=== PATIENT | female | born 1970 | race Caucasian/White ===

== ENCOUNTER → 2017-08-23 | Outpatient (CLI) | payer SELFPAY ==
[~2017-08-23] MED LIST: ALBUTEROL0.09 MG/A2 IH; ALBUTEROL0.09 MG/A2 INH; ANAPROX DS550 MG PO; BIAXIN500 MG PO; BREO ELLIPTA 21 EACH IH; CETIRIZINE10 MG; CLARITIN10 MG PO; CLEOCIN HCL150 MG PO; DELTASONE20 MG PO; DUONEB 3 MG/3 ML3 M1 INH; LEVAQUIN750 MG PO; LOMOTIL 0.025 M1 TAB PO; MEDROL DOSEPAK4 MG PO; NKHM; NORCO 5-325 TA1 EACH PO; PREDNISONE10 MG PO; PREDNISONE20 M1 PO; PREDNISONE20 MG PO; PREDNISONE50 MG PO; PROAIR HFA0.09 MG/AC INH; PROVENTIL0.09 MG/AC IH; Phenergan25 MG PO; ROBITUSSIN AC 110 ML PO; SINGULAIR10 MG; SINGULAIR10 MG PO; SPIRIVA RE2.5 MCG/Ac IH; TORADOL10 MG PO; TRAMADOL HCL50 MG PO; VIBRAMYCIN100 MG PO; VICODIN 5/500 505 MG PO; VOLTAREN50 M1 PO; ZITHROMAX Z PA250 MG PO; ZOFRAN ODT4 MG SL
[2017-08-23 15:16] LABS: HEMOGLOBIN 11.8 g/dl (12.0-16.0); MEAN CELL VOLUME 86.8 fl (81.0-99.0); MEAN CORPUSCULAR HGB 26.9 pg (27.0-31.0); MEAN CORPUSCULAR HGB CONC 31.1 g/dl (33.0-37.0); MEAN PLATELET VOLUME 8.8 fl (9.6-12.3); RED BLOOD COUNT 4.38 10*6/uL (4.10-5.10); RED CELL DISTRI WIDTH 13.7 % (0-14.5); WHITE BLOOD COUNT 7.5 10*3/uL (4.8-10.8)
[2017-08-23 15:32] LABS: ALBUMIN 3.4 gm/dl (3.1-4.5); ALKALINE PHOSPHATASE 90 U/L (45-117); BUN 9 mg/dl (7-24); CHLORIDE 106 mmol/L (98-107); CHOLESTEROL 243 mg/dL (<200); CREATININE 0.81 mg/dL (0.55-1.02); HDL CHOLESTEROL 53 mg/dl (40-60); LDL CHOLESTEROL 155 mg/dL (9-159); POTASSIUM 3.9 mmol/L (3.5-5.1); SGOT/AST 17 IU/L (3-35); SGPT/ALT 19 U/L (12-78); SODIUM 140 mmol/L (136-145); TOTAL PROTEIN 6.9 gm/dL (6.4-8.2); TRIGLYCERIDES 177 mg/dl (<150); VLDL CHOLESTEROL 35 mg/dL (6-40)
== END | disposition home or self-care (01) ==
LOC: LAB 14:57
PROVIDERS: Family Medicine
DX: E78.00 Pure hypercholesterolemia, unspecified (principal); F41.1 Generalized anxiety disorder; E74.09 Other glycogen storage disease; R53.83 Other fatigue